=== PATIENT | female | born 1975 | race African-American/Black ===

== ENCOUNTER 2017-09-13 08:30 | Inpatient (IN) | payer OTHER ==
[~2017-09-13] VITALS: Ht 170.2 cm; Wt 88.5 kg
[2017-09-27] MEDS ORDERED: VANCOMYCIN 1 GM/200 ML PREMIX IV SCH (10:45)
[2017-09-27] MEDS ORDERED: ceFAZolin 2 GM PREMIX 50 ML IV SCH (10:45)
[2017-09-27] MEDS ORDERED: LACTATED RINGER'S 1000 ML IV PRN (10:45)
[2017-09-27] MEDS ORDERED: METOPROLOL TARTRATE 25 MG TAB PO PRN (10:45)
[2017-09-27] MEDS ORDERED: POVIDONE IODINE 5% (ANTISEPSIS KIT) 4 APPLICATIONS EACH NARE PRN (10:45)
[2017-09-27] MEDS ORDERED: SODIUM CHLORID 0.9% 500 ML IV PRN (10:45)
[2017-09-27] MEDS ORDERED: INSULIN HUMAN REGULAR 1,000 UNITS/10 ML VIAL SQ PRN (10:45)
[2017-09-27] MEDS ORDERED: CHLORHEXIDINE GLUCONATE 4% SOLN 120 ML BTL TOPICAL SCH (10:45)
[2017-09-27] MEDS ORDERED: CHLORHEXIDINE GLUCONATE 2 % 1 PACK (2 CLOTHS) TOPICAL PRN (10:45)
[2017-09-27] MEDS ORDERED: KETAMINE HCL 500 MG/10 ML VIAL ONE (11:05)
[2017-09-27] MEDS ORDERED: PROPOFOL 500 MG/50 ML INJ 150 ML ONE (11:06)
[2017-09-27] MEDS ORDERED: BUPIVACAINE/EPINEPHRINE 0.5% PF 30 ML VIAL ONE (11:10)
[2017-09-27] MEDS ORDERED: GENTAMICIN SULFATE 80 MG/2 ML VIAL ONE (11:14)
[2017-09-27] MEDS ORDERED: ACETAMINOPHEN 1000 MG/100 ML 100 ML IV ONE (14:36)
[2017-09-27] MEDS ORDERED: MORPHINE SULFATE 4 MG/ML INJ IV PUSH PRN (15:45)
[2017-09-27] MEDS ORDERED: NALOXONE HCL 0.4 MG/ML AMP IV PUSH PRN (15:45)
[2017-09-27] MEDS ORDERED: Post-op Orders (for Pharmacy) XX ONE (15:45)
[2017-09-27] MEDS ORDERED: ALUMINUM/MAGNESIUM/SIMETH 30 ML CUP PO PRN (15:45)
[2017-09-27] MEDS ORDERED: PROMETHAZINE INJ 25 MG/ML VIAL IM PRN (15:45)
[2017-09-27] MEDS ORDERED: ACETAMINOPHEN/HYDROcodone 325 MG/7.5 MG TAB PO PRN (15:45)
[2017-09-27] MEDS ORDERED: ONDANSETRON HCL 4 MG/2 ML VIAL IV PUSH PRN (15:45)
--- NOTE | 2017-09-27 15:57 | RADRPT ---
EXAM DATE/TIME: 09/27/2017 11:59 [facility] COMPARISON: No previous studies available for comparison. INDICATIONS : Fusion C3,C4 and C4,and C5,C6 with screw and plate. MEDICAL HISTORY : None. SURGICAL HISTORY : None. ENCOUNTER: Initial ACUITY: 1 day PAIN SCORE: Non-responsive. LOCATION: Cervical spine. FINDINGS: Two projection examination was performed. Intraoperative films demonstrate anterior cervical fusion f rom C3-C6 CONCLUSION: Intraoperative films demonstrate excellent alignment status post fusion from C3-C6. Edmund Hargrove MD on September 27, 2017 at 15:53 Board Certified Radiologist. This report was verified electronically.
--- NOTE | 2017-09-27 16:07 | PD.OP ---
cc: Evan Adames MD; Richard Adames MD Operative Report Date of Surgery: Sep 27, 2017 Preoperative Diagnosis: Herniated nucleus pulposus C3-4 central. Herniated nucleus pulposus C4-5 central, right. Osteophyte disc complex C5-6 right greater than left. Right greater than left cervical radiculopathy Postoperative Diagnosis: Same Procedure: Anterior cervical discectomy and decompression with bilateral foraminotomy and resection of herniated nucleus pulposus, C3-4. Anterior cervical discectomy and decompression with bilateral foraminotomies and resection herniated nucleus pulposus C4-5. Anterior cervical discectomy and decompression with bilateral foraminotomies and resection osteophyte disc complex, C5-6 Anesthesia: General Surgeon: Richard Adames Director Of Premium Seat Sales(s): MAGDA Chester Operation and Findings: EBL: 300 cc INDICATIONS: This patient is a 41-year-old female with a work-related injury to her cervical spine. She has significant radiating arm pain. She has had over one year of conservative care. She now presents for surgical treatment. NOTE: Chani Lee PA-C was present for the entire surgical procedure as my information technology assistant. In my medical opinion her skill and care was necessary for proper management of this patient PROCEDURE: The patient was brought to the operating room and anesthetized in the supine position. This patient was positioned supine on the radiolucent table. All pressure points were protected in the anterior cervical spine and iliac crest was scrubbed with alcohol followed by Hibiclens followed by ChloraPrep. A timeout was done and antibiotics were given within 1 hour time window. Lateral radiographic images were used identifying the proper level. A right anterior incision was made in line with skin creases. The platysma was opened in line with the incision. Deep dissection continued in the interval between the carotid sheath and the esophagus. The longus-coli muscles were lifted on both sides and retractors were positioned allowing good exposure. Lateral radiographic images were used to identify the proper level. [place] style interosseous pins were placed at C3 and C4 allowing exposure to that level. The microscope was rolled into the field. A total discectomy was accomplished and posterior osteophytes were removed. The posterior longitudinal ligament and annulus was taken down. There was a significant disc herniation centrally bilateral foraminotomies were accomplished. The endplates were squared up anticipating later bone grafting. A blunt probe could be placed out each foramen without evidence of nerve root compromise. The C3 pin was placed down to C5. An anterior exposure was accomplished. We performed a total discectomy with excision of the posterior annulus and posterior longitudinal ligament. There was a significant disc herniation centrally into the right extending to the foramen bilateral foraminotomies were accomplished. Osteophytes were removed. The endplates were squared up anticipating later bone grafting. A blunt probe could be placed out each foramen without evidence of nerve root compromise. The C4 pin was placed down to C6. An anterior exposure was accomplished. We performed a total discectomy with excision of the posterior annulus and posterior longitudinal ligament. Bilateral foraminotomies were accomplished. Osteophytes were removed. The endplates were squared up anticipating later bone grafting. A blunt probe could be placed out each foramen without evidence of nerve root compromise. The left iliac crest was approached. A small stab incision was made allowing percutaneous access to the anterior iliac crest. Multiple cores of cancellous bone were harvested and taken to the back table to be used for later bone grafting. The wound was irrigated anesthetized and closed with 4-0 Vicryl followed by Dermabond. The case was turned over to Dr. Evan Adames for fusion and instrumentation per his dictation. FINDINGS: There was evidence of a large central disc herniation at C3-4. There is a large central and right-sided disc herniation at C4-5. There was moderate bilateral foraminal stenosis, worse on the right at the C5-6 level. There was no complication. There was significant epidural bleeding to the right at the C4 -5 level which was addressed and stopped with Surgi-Tony. At the end of the procedure there was no significant bleeding at any level NOTE: This surgery was performed in 2 parts. The first part was the neurosurgical decompression performed under the variable power stereo microscope by the undersigned in addition to the bone graft. The second portion of the surgery will be performed by the orthopedic spine component by co -surgeon, Dr. Evan Adames for the anterior fusion with interbody cage and anterior plate. The skill of 2 surgeons was necessary to perform distinct separate procedural services as dictated above and dictated in the following operative note by Dr. Evan Adames. Richard Adames MD Sep 27, 2017 16:07
[2017-09-27] MEDS ORDERED: DO NOT ADM ANY ANTICOAGULANT DRUGS PRN (16:15)
[2017-09-27] MEDS ORDERED: MIDAZOLAM HCL 2 MG/2 ML VIAL ONE (16:19)
--- NOTE | 2017-09-27 16:24 | MP ---
cc: Evan Adames MD DATE OF OPERATION: DATE OF OPERATION: 09/27/2017. PREOPERATIVE DIAGNOSES: 1. C3-C4 central herniated nucleus pulposus. 2. C4-C5 central right-sided herniated nucleus pulposus, moderate spinal cord compression. 3. C5-C6 osteophyte disk complex, protruding disk. 4. Bilateral cervical radiculitis with bilateral upper extremity weakness. POSTOPERATIVE DIAGNOSES: 1. C3-C4 central herniated nucleus pulposus. 2. C4-C5 central right-sided herniated nucleus pulposus, moderate spinal cord compression. 3. C5-C6 osteophyte disk complex, protruding disk. 4. Bilateral cervical radiculitis with bilateral upper extremity weakness. PROCEDURE PERFORMED: C3-C4, C4-C5, C5-C6, anterior interbody fusion; C3-C4, C4-C5, C5-C6 SpineNet ACC anterior cervical cage; C3-C6 Spine[employer] Rauscher anterior spinal instrumentation. SURGEON: Evan Magana MD MEDICAL GENETICIST: Magda David PA-C ESTIMATED BLOOD LOSS: 350 mL for the entire case. ANESTHESIA: General. DRAIN: One. COMPLICATIONS: None. CONDITION: Stable. DESCRIPTION OF PROCEDURE: Dr. Richard Adames and myself were co-surgeons. Dr. Richard Adames performed the neuro decompressive portion of the procedure. He performed a C3-C4, C4-C5, C5-C6 anterior cervical diskectomy, anterior decompression, foraminotomies using an operative microscope and also performed left anterior iliac crest autogenous bone grafting. I was not present for his portion of the procedure. I performed the above-mentioned surgical procedure. My speech language pathology assistant Magda David PA-C was present for my portion of the surgical case. She was medically necessary for the entire case because of the complexity case and to facilitate the performance of the procedure. The SALES PERSON at the back table was not of the skill set in this case to manipulate the instruments, e.g. multiple different soft tissue retractors, trial implants and permanent implants, including bone grafting, spinal instrumentation and screws. The endplates at C5-C6 were prepared for fusion. The hyaline cartilage endplates were removed using angled curettes and burs. A 610 x 12 ACC cage were placed into the interspace. Anterior iliac crest bone graft was placed under fluoroscopic guidance for interbody fusion. The endplates at C4-C5 were prepared for fusion. The hyaline cartilage endplates were removed using angled curettes and burs. A 610 x 12 ACC cage placed in interspace. Anterior iliac crest bone grafting was used under fluoroscopic guidance for interbody fusion. The endplates at C3-C4 were prepared for fusion. The hyaline cartilage endplates were removed using angled curettes and burs. A 510 x 12 ACC cage placed in interspace. Anterior iliac crest bone graft was used under fluoroscopic guidance for interbody fusion. Anterior osteophytes were removed using multiple types of rongeurs and sommer. A 60 mm plate was then used for anterior spinal instrumentation. A single transfixion screw was used. Temporary screw was used. Under fluoroscopic guidance, AP and lateral plane, it appeared to be in satisfactory positioning. Two screws were used in the vertebral body of C3, C4, C5, and C6. Each of the screws were 12 mm screws in length, 4.0 mm in diameter fixed angle screws. Each of the screws were drilled. Screws were inserted. Each screw head was appropriately locked in the plate. The temporary transfixion screw was removed and then the final screw was inserted and locked to the plate. Intraoperative fluoroscopy AP and lateral plane confirmed satisfactory position of the bone graft at C3-C4, C4-C5, C5-C6 after placing ACC cages at C3-C4, C4-C5, C5-C6, and satisfactory position of anterior spinal instrumentation from C3-C6. The wound was irrigated with copious amounts of sterile saline antibiotic solution. The wound was closed over a 10-[place] drain. Wound was closed in multiple layers using 3-0 Vicryl suture. Skin was approximated with a running subcuticular 4-0 Vicryl. Sterile dressings were applied. The patient was placed in a [place] cervical orthosis. The patient tolerated the procedure well, arrived in the recovery room in stable and satisfactory condition. MD LESVIA Eaton/DUY , 03:42 PM , 04:24 PM
[2017-09-27] MEDS: LACTATED RINGER'S 1000 ML INJ 1,000 ML IV SCH (16:26)
[2017-09-27] MEDS ORDERED: *morphine SULFATE 4 MG/ML PERIprocedure ONLY ONE ×3 (17:02→17:49)
[2017-09-27] MEDS: ACETAMINOPHEN/HYDROcodone 325 MG/7.5 MG TAB PO PRN (19:52)
[2017-09-27 20:05] VITALS: BP 164/89; PULSE 61; RESP 18; TEMP 98.3; O2SAT 100
[2017-09-27 20:57] VITALS: BP 164/86; PULSE 64
[2017-09-27] MEDS ORDERED: ZOLPIDEM TARTRATE 5 MG TAB PO PRN (21:00)
[2017-09-27 23:47] VITALS: BP 145/76; PULSE 97; RESP 17; TEMP 99.4; O2SAT 100
[2017-09-28] VITALS (8 sets, daily range): BP systolic 121–142; BP diastolic 59–74; PULSE 84–106; RESP 16–18; TEMP 98–99.5; O2SAT 96–100
[2017-09-28 03:06] LABS: AUTOMATED NEUTROPHIL # 9.9 TH/MM3 (1.8-7.7); BASOPHIL % 0.3 % (0.0-2.0); HEMATOCRIT 26.1 % (35.0-46.0); HEMOGLOBIN 8.5 GM/DL (11.6-15.3); LYMPH % 8.1 % (9.0-44.0); LYMPHOCYTE # 0.9 TH/MM3 (1.0-4.8); MEAN CELL VOLUME 81.9 FL (80.0-100.0); MEAN CORPUSCULAR HEMOGLOBIN 26.8 PG (27.0-34.0); MEAN CORPUSCULAR HGB CONC 32.7 % (32.0-36.0); MEAN PLATELET VOLUME 8.7 FL (7.0-11.0); MONO % 4.2 % (0.0-8.0); MONOCYTE # 0.5 TH/MM3 (0-0.9); NEUT % 87.4 % (16.0-70.0); PLATELET COUNT 252 TH/MM3 (150-450); RED BLOOD COUNT 3.19 MIL/MM3 (4.00-5.30); WHITE BLOOD COUNT 11.3 TH/MM3 (4.0-11.0)
[2017-09-28 03:26] LABS: CALCIUM 8.1 MG/DL (8.5-10.1); CREATININE 0.84 MG/DL (0.50-1.00)
[2017-09-28] MEDS: LACTATED RINGER'S 1000 ML INJ 1,000 ML IV SCH ×2 (03:43→16:43)
[2017-09-28] MEDS: ACETAMINOPHEN/HYDROcodone 325 MG/7.5 MG TAB PO PRN ×4 (03:43→21:30)
[2017-09-28] MEDS ORDERED: IOHEXOL 350 MG/ML 10 ML VIAL (for RAD DIAG) IVCONTRAST ONE (04:48)
--- NOTE | 2017-09-28 05:05 | RADRPT ---
EXAM DATE/TIME: 09/28/2017 04:36 [facility] COMPARISON: No previous studies available for comparison. INDICATIONS : Chest pain, elevated d-dimer. IV CONTRAST: 75 cc Omnipaque 350 (iohexol) IV RADIATION DOSE: 10.06 CTDIvol (mGy) MEDICAL HISTORY : None SURGICAL HISTORY : Fusion, cervical. ENCOUNTER: Initial ACUITY: 1 day PAIN SCALE: 10/10 LOCATION: chest TECHNIQUE: Volumetric scanning of the chest was performed using a pulmonary embolism protocol MIP images were re constructed. Using automated exposure control and adjustment of the mA and/or kV according to patien t size, radiation dose was kept as low as reasonably achievable to obtain optimal diagnostic quality images. DICOM format image data is available electronically for review and comparison. Follow-up recommendations for detected pulmonary nodules are based at a minimum on nodule size and pa tient risk factors according to Fleischner Society Guidelines. FINDINGS: PULMONARY ARTERIES: No filling defects are seen in the pulmonary arteries through the segmental level. LUNGS: Subsegmental area of consolidation in the posterior segment of the right upper lobe and patchy areas of atelectasis with consolidation in the posterior lower lungs. PLEURAE: There is no pleural thickening or pleural effusion. MEDIASTINUM: There is good visualization of the great vessels of the middle mediastinum. No evidence of mediastin al or hilar adenopathy/mass. CONCLUSION: 1. The study is negative for pulmonary embolism. 2. Subsegmental areas of consolidation in the lower lungs bilaterally and in the posterior segment ri ght upper lobe. Arley Lemons MD on September 28, 2017 at 4:58 Board Certified Radiologist. This report was verified electronically.
[2017-09-28] MEDS ORDERED: HYDR-3288 PO (06:54)
--- NOTE | 2017-09-28 07:01 | PD.ORT.PN ---
Subjective Subjective Remarks pt complains of chest pain and left leg pain soreness in cervical spine, arm pain improved Objective Vitals Vital Signs Date Time Temp Pulse Resp B/P (MAP) Pulse Ox O2 Delivery O2 Flow Rate FiO2 09/28/17 03:40 99.4 106 17 142/74 (96) 97 09/27/17 23:47 99.4 97 17 145/76 (99) 100 09/27/17 20:57 64 164/86 (112) 09/27/17 20:05 98.3 61 18 164/89 (114) 100 09/27/17 18:30 74 18 162/81 (108) 100 Nasal Cannula 3 09/27/17 18:00 78 15 165/90 (115) 100 Nasal Cannula 3 09/27/17 17:30 72 14 163/97 (119) 100 Nasal Cannula 3 09/27/17 17:00 76 14 167/96 (119) 100 Nasal Cannula 3 09/27/17 16:45 76 25 148/89 (108) 100 Nasal Cannula 3 09/27/17 16:30 71 20 150/80 (103) 100 Nasal Cannula 3 09/27/17 16:14 97.5 74 13 135/82 (99) 100 Nasal Cannula 3 09/27/17 10:33 97.5 74 20 143/91 (108) 99 I/O 09/27/17 09/27/17 09/27/17 09/28/17 09/28/17 09/28/17 07:00 15:00 23:00 07:00 15:00 23:00 Intake Total 900 ml 360 ml Output Total 1215 ml 910 ml Balance -315 ml -550 ml Intake Oral 360 ml Other 900 ml Output Urine Total 825 ml 900 ml Drainage Total 40 ml 10 ml Estimated Blood Loss 350 ml # Bowel Movements 0 Result Diagram: 09/28/17 0226 09/28/17 0226 Imaging Last [address] Angiography 09/28/17 0000 Signed Impressions: Service Date/Time: Thursday, September 28, 2017 04:36 - CONCLUSION: 1. The study is negative for pulmonary embolism. 2. Subsegmental areas of consolidation in the lower lungs bilaterally and in the posterior segment right upper lobe. Arley Lemons MD Objective Remarks seen and examined by Dr. Evan Adames Wal[place] collar in place dressing dry and intact motor is +5/5 to UE Assessment & Plan Assessment and Plan POD # 1 s/p C3-6 ACDF Walpole collar x 2 months [place] rx in chart consult cardiology today for further evaluation of chest pain if stable, may be discharged home this afternoon otherwise, anticipate discharge Sunday home Magda David Sep 28, 2017 07:01
[2017-09-28] MEDS: MULTIVITAMINS/MINERALS THERAPEUTIC TAB PO SCH ×2 (09:53→21:30)
--- NOTE | 2017-09-28 10:35 | PD.CONS ---
HPI Service [facility] Consult Requested By medical comanagement/chest pain Primary Care Physician No Primary Care Physician Diagnoses: History of Present Illness This is a 41-year-old female who sustained a work-related injury to her cervical spine after a fall at work. She failed conservative treatment, she was admitted for discectomy. We are consulted for management of chronic medical conditions and chest pain. My team ordered troponin 2 and EKG last night and CTA. CTA is unremarkable, negative for PE. Troponin negative 2. EKG is unremarkable. Per patient, she has been having this chest pain for a while for the last 3-4 months. Chest pain is chronic but was worse last night, associated with mild shortness of breath, radiating to the left jaw and left arm , located in the left side of the chest, described as sharp, sometimes pressure- like. Presently, no nausea or vomiting. She does not have any complaints other than cervical pain. Review of Systems ROS Limitations: Other (All other pertinent systems were reviewed and are negative.) Past Family Social History Allergies: Coded Allergies: No Known Allergies (Unverified , 09/25/17) Past Medical History pre-hypertension Past Surgical History discectomy Reported Medications [place] (Hydrocodone-Acetaminophen) 7.5-325 mg Tab 1-2 Tab PO Q6H PRN Family History No history of diabetes mellitus or heart problems Social History Non-smoker, does not drink alcohol. Physical Exam Vital Signs Vital Signs Date Time Temp Pulse Resp B/P (MAP) Pulse Ox O2 Delivery O2 Flow Rate FiO2 09/28/17 08:25 98 Nasal Cannula 1.00 09/28/17 08:00 98.6 90 16 137/73 (94) 99 09/28/17 03:40 99.4 106 17 142/74 (96) 97 09/27/17 23:47 99.4 97 17 145/76 (99) 100 09/27/17 20:57 64 164/86 (112) 09/27/17 20:05 98.3 61 18 164/89 (114) 100 09/27/17 18:30 74 18 162/81 (108) 100 Nasal Cannula 3 09/27/17 18:00 78 15 165/90 (115) 100 Nasal Cannula 3 09/27/17 17:30 72 14 163/97 (119) 100 Nasal Cannula 3 09/27/17 17:00 76 14 167/96 (119) 100 Nasal Cannula 3 09/27/17 16:45 76 25 148/89 (108) 100 Nasal Cannula 3 09/27/17 16:30 71 20 150/80 (103) 100 Nasal Cannula 3 09/27/17 16:14 97.5 74 13 135/82 (99) 100 Nasal Cannula 3 09/27/17 10:33 97.5 74 20 143/91 (108) 99 Physical Exam Not in distress PERRL, pink conjunctivae, full EOMs, no cranial nerve deficits Schuyler collar in place Regular rate and rhythm, no chest tenderness on palpation Clear breath sounds Abdomen soft nontender SCDs in place, no edema. Alert awake and alert oriented 3, no focal deficits. Good handgrip bilaterally. Patient appears very weak, good plantarflexion on the right, left is diminished but also poor effort. Laboratory Laboratory Tests Test 09/27/17 23:23 09/28/17 02:26 D-Dimer Quantitative (PE/DVT) 2.44 Troponin I LESS THAN 0.02 LESS THAN 0.02 White Blood Count 11.3 Red Blood Count 3.19 Hemoglobin 8.5 Hematocrit 26.1 Mean Corpuscular Volume 81.9 Mean Corpuscular Hemoglobin 26.8 Mean Corpuscular Hemoglobin Concent 32.7 Red Cell Distribution Width 13.0 Platelet Count 252 Mean Platelet Volume 8.7 Neutrophils (%) (Auto) 87.4 Lymphocytes (%) (Auto) 8.1 Monocytes (%) (Auto) 4.2 Eosinophils (%) (Auto) 0.0 Basophils (%) (Auto) 0.3 Neutrophils # (Auto) 9.9 Lymphocytes # (Auto) 0.9 Monocytes # (Auto) 0.5 Eosinophils # (Auto) 0.0 Basophils # (Auto) 0.0 CBC Comment DIFF FINAL Differential Comment Blood Urea Nitrogen 8 Creatinine 0.84 Random Glucose 180 Calcium Level 8.1 Sodium Level 137 Potassium Level 4.3 Chloride Level 101 Carbon Dioxide Level 25.0 Anion Gap 11 Estimat Glomerular Filtration Rate 90 Result Diagram: 09/28/1722509/28/17225 Assessment and Plan Assessment and Plan This is a 41-year-old female admitted for discectomy for cervical disc herniation after a work-related injury Cervical disc herniation-Schuyler collar in place, continue pain control, management per primary. Chest pain-could be musculoskeletal or related to cervical pathology. CT negative for PE, d-dimer elevated, troponin negative 2, EKG showed sinus rhythm. Cardiology was consulted, labs reviewed, grossly unremarkable. Discussed with cardiology Dr. Lan, for stress test tomorrow. Mild anemia-recheck hemoglobin tomorrow. DVT prophylaxis: Per attending. Marni Good MD Sep 28, 2017 10:35
--- NOTE | 2017-09-28 12:36 | MB ---
cc: RikyBethanyginna Horne DO DATE: 09/28/2017 REASON FOR CONSULTATION: Chest pain. HISTORY OF PRESENT ILLNESS: Nina Goodman is a pleasant 41-year-old female who sustained a work-related injury to her cervical spine after a fall at work. She failed conservative treatment and was admitted and underwent a multilevel discectomy with decompression of her cervical spine with fusion . Afterwards, apparently she was having some chest pain. A D-dimer was checked and elevated and so she underwent a CTA which showed no pulmonary embolus. EKGs were checked as well as troponins with troponins being negative and EKG showing no acute ST-T wave changes. In seeing her, she feels weak all over with pain everywhere. She states that the pain is difficult to describe in her chest, but it feels like the blood is trying to force itself through the heart. She states that it is over the left side and does not radiate anywhere. She has never had an episode like this before. She feels somewhat short of breath with the episode. Pain has kind of come and gone throughout the day. It does seem to react a little bit to the pain medication, but does not go away totally with pain medication. She was asked to see a corset fitter before the surgery apparently and had seen one, but she had seen a corset fitter in [place], she is unsure of the name, but it does not seem like she underwent a workup preoperatively before surgery. She was apparently scheduled for a stress test in June, but they felt like her problems were due to stress before surgery and so apparently she did not have the stress test. She is not a very good historian on what has happened over the past few months to get her to this point. PAST MEDICAL HISTORY: Hypertension. PAST SURGICAL HISTORY: Discectomy with anterior fusion. ALLERGIES: NO KNOWN DRUG ALLERGIES. MEDICATIONS: [place] 7.5/325 every 6 hours as needed for pain. FAMILY HISTORY: Denies premature coronary artery disease or sudden cardiac within the family. SOCIAL HISTORY: Denies tobacco, alcohol or drug abuse. REVIEW OF SYSTEMS: Fourteen systems are reviewed including osteopathic pertinent positives and negatives above, otherwise negative. PHYSICAL EXAMINATION: VITAL SIGNS: Temperature 98.6, heart rate 90, blood pressure 137/73, respirations 16, pulse oximetry 99% on 1 liter. GENERAL: The patient appears in no acute distress, but overall weak. Alert, awake and oriented x3. HEENT: Extraocular muscles intact. Mucous membranes moist. Mineral collar in place. HEART: Regular rate and rhythm. Positive first and second heart sounds with no known murmurs, gallops or rubs. LUNGS: Clear to auscultation bilaterally. No wheezes, rales or rhonchi. ABDOMEN: Soft, nontender, nondistended. No organomegaly noted. EXTREMITIES: No clubbing, cyanosis or edema. Femoral and distal pulses intact bilaterally. SKIN: Warm, dry and intact. OSTEOPATHIC: Mild kyphoscoliosis. No lordosis. LABORATORY DATA: Hemoglobin 8.5, hematocrit 26.1, platelets 252. Troponin negative x2. Potassium 4.3, BUN 8, creatinine 0.84. Troponin negative x2. Electrocardiogram (09/28/2017 at 09:31) Normal sinus rhythm, low QRS voltage in precordial leads, poor R-wave progression. IMPRESSIONS: 1. Cervical disk herniation, status post discectomy with anterior fusion. 2. Atypical chest pain, possible musculoskeletal. 3. Anemia. 4. History of hypertension. RECOMMENDATIONS: 1. Ms. Rhodes underwent discectomy with anterior fusion and afterwards had some mild chest pain. She continues to have some of this chest pain and overall her troponins have been negative and her EKG shows no ischemic changes. 2. I feel that she needs a stress test at some time to rule out significant disease, although my concern is that even if stress test was positive. I do not know if she would be an invasive candidate at this time with recent orthopedic/neurosurgery. This will have to be further discussed with Dr. Evan Adames and Dr. Richard Adames. 3. If not a candidate for high dose of heparin, glycoprotein IIb, IIIa inhibitors and dual antiplatelet therapy, would consider further medical management. At that time, she could then followup with Cardiology in [place] for further consideration of stress testing. 4. If she is able to be an invasive candidate, then we would consider stress testing tomorrow morning. 5. Further recommendations will be made after discussing with Dr. Evan Adames and Dr. Richard Adames. Thank you for allowing me to see Nina Rhodes. If there are any questions, please do not hesitate to call. DO GALEN Romeo/TYLER , 12:00 PM , 12:35 PM
--- NOTE | 2017-09-28 13:39 | EKG ---
Date Performed: 09/27/2017 Time Performed: 22:23:04 PTAGE: 41 years EKG: Sinus rhythm MODERATE VOLTAGE CRITERIA FOR LVH, CONSIDER NORMAL VARIANT POSSIBLE ANTERIOR MYOCARDIAL INFARCTION , PROBABLY OLD BORDERLINE ECG NO PREVIOUS TRACING DOCTOR: Eduardo Sheikh Interpretating Date/Time 09/28/2017 13:36:21
--- NOTE | 2017-09-28 13:45 | EKG ---
Date Performed: 09/28/2017 Time Performed: 09:31:17 PTAGE: 41 years EKG: Sinus rhythm LOW QRS VOLTAGE IN PRECORDIAL LEADS POSSIBLE ANTERIOR MYOCARDIAL INFARCTION , PROBABLY OLD BORDERLIN E ECG PREVIOUS TRACING : 09/27/2017 22.23 Since the previous tracing, no significant change noted DOCTOR: Eduardo Sheikh Interpretating Date/Time 09/28/2017 13:43:16
--- NOTE | 2017-09-28 18:58 | PD.CARD.PN ---
Assessment and Plan Assessment and Plan Discussed with Dr. Richard Adames over the phone. Overall, with her recent surgery especially the neurosurgical portion, would not place on high dose of heparin or dual anti-platelet medications. For now, troponins have been negative and EKG with no ischemic changes. Will plan for continuation of medical management. If stable in the morning she can be discharged home. She can follow up with the greenskeeper head she saw in [place] for further consideration of stress testing in the near future. Discussed with the patient and she understands. Milad Lan DO Sep 28, 2017 18:58
[2017-09-29 03:22] VITALS: BP 148/78; PULSE 104; RESP 18; TEMP 99.9; O2SAT 97
[2017-09-29] MEDS: ACETAMINOPHEN/HYDROcodone 325 MG/7.5 MG TAB PO PRN ×2 (03:26→09:09)
[2017-09-29] MEDS: LACTATED RINGER'S 1000 ML INJ 1,000 ML IV SCH (05:13)
[2017-09-29 06:28] VITALS: BP 134/70; PULSE 94; RESP 18; TEMP 98.9; O2SAT 99
--- NOTE | 2017-09-29 07:12 | PD.ORT.PN ---
Subjective Subjective Remarks Pain is controlled and is improving Objective Vitals Vital Signs Date Time Temp Pulse Resp B/P (MAP) Pulse Ox O2 Delivery O2 Flow Rate FiO2 09/29/17 06:28 98.9 94 18 134/70 (91) 99 09/29/17 03:22 99.9 104 18 148/78 (101) 97 09/28/17 23:03 98.4 102 18 121/59 (79) 96 09/28/17 20:33 100 21 09/28/17 19:50 99.5 94 18 124/63 (83) 97 09/28/17 16:00 98.0 84 16 121/63 (82) 96 09/28/17 12:00 98.9 91 16 133/71 (91) 97 09/28/17 08:25 98 Nasal Cannula 1.00 09/28/17 08:00 98.6 90 16 137/73 (94) 99 I/O 09/28/17 09/28/17 09/28/17 09/29/17 09/29/17 09/29/17 07:00 15:00 23:00 07:00 15:00 23:00 Intake Total 360 ml 600 ml 480 ml Output Total 910 ml 3600 ml Balance -550 ml -3000 ml 480 ml Intake Oral 360 ml 600 ml 480 ml Output Urine Total 900 ml 3600 ml Drainage Total 10 ml # Voids 2 # Bowel Movements 0 0 Result Diagram: 09/28/17 0226 09/28/17 0226 Imaging Last [address] Angiography 09/28/17 0000 Signed Impressions: Service Date/Time: Thursday, September 28, 2017 04:36 - CONCLUSION: 1. The study is negative for pulmonary embolism. 2. Subsegmental areas of consolidation in the lower lungs bilaterally and in the posterior segment right upper lobe. 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 If cleared by physical therapy discharged home today Shashank Peacock Jr. Sep 29, 2017 07:12
[2017-09-29] MEDS: MULTIVITAMINS/MINERALS THERAPEUTIC TAB PO SCH (09:09)
[2017-09-29] MEDS ORDERED: WALKER WHEELS/F1 MIS (11:19)
[2017-09-29 11:52] VITALS: BP 135/68; PULSE 91; RESP 18; TEMP 98.5; O2SAT 94
--- NOTE | 2017-09-29 13:19 | PD.CARD.PN ---
Subjective Subjective Remarks No events overnight Up to the chair Feels better overall Objective Vital Signs / I&O Vital Signs Date Time Temp Pulse Resp B/P (MAP) Pulse Ox O2 Delivery O2 Flow Rate FiO2 09/29/17 11:52 98.5 91 18 135/68 (90) 94 09/29/17 09:34 21 09/29/17 06:28 98.9 94 18 134/70 (91) 99 09/29/17 03:22 99.9 104 18 148/78 (101) 97 09/28/17 23:03 98.4 102 18 121/59 (79) 96 09/28/17 20:33 100 21 09/28/17 19:50 99.5 94 18 124/63 (83) 97 09/28/17 16:00 98.0 84 16 121/63 (82) 96 I/O 09/28/17 09/28/17 09/28/17 09/29/17 09/29/17 09/29/17 07:00 15:00 23:00 07:00 15:00 23:00 Intake Total 360 ml 600 ml 480 ml Output Total 910 ml 3600 ml Balance -550 ml -3000 ml 480 ml Intake Oral 360 ml 600 ml 480 ml Output Urine Total 900 ml 3600 ml Drainage Total 10 ml # Voids 2 # Bowel Movements 0 0 Physical Exam GENERAL: NAD, AAOx3 SKIN: Warm and dry. HEAD: Atraumatic. Normocephalic. EYES: Pupils equal and round. No scleral icterus. No injection or drainage. ENT: No nasal bleeding or discharge. Mucous membranes pink and moist. NECK: [place] collar CARDIOVASCULAR: Regular rate and rhythm. RESPIRATORY: No accessory muscle use. Clear to auscultation. Breath sounds equal bilaterally. GASTROINTESTINAL: Abdomen soft, non-tender, nondistended. Hepatic and splenic margins not palpable. MUSCULOSKELETAL: Extremities without clubbing, cyanosis, or edema. No obvious deformities. NEUROLOGICAL: Awake and alert. No obvious cranial nerve deficits. Motor grossly within normal limits. Five out of 5 muscle strength in the arms and legs. Normal speech. PSYCHIATRIC: Appropriate mood and affect; insight and judgment normal. Assessment and Plan Problem List: (1) Atypical chest pain ICD Codes: R07.89 - Other chest pain (2) S/P spinal fusion ICD Codes: Z98.1 - Arthrodesis status Assessment and Plan 1) Spinal fusion Per Orthopedics 2) Atypical chest pain Does not appear to be cardiac in nature, EKG with no changes and Troponins negative Due to recent Orthopedic/neurosurgery, would continue with medical management for now Not an invasive candidate as would not be safe to place on high dose of heparin, GP 2B/3A, or DAPT Place on ASA 81mg as soon as safe 3) Plan for discharge today 4) Will follow up with her metal sprayer protective coating in [place] for further consideration of stress testing once stable for anti-platelet/anti-coagulation Discussed with patient, understands and agrees with plan If further chest pain will go to the ER immediately Milda Lan DO Sep 29, 2017 13:19
== END 2017-09-29 12:34 | disposition home or self-care (01) | DRG 472 ==
LOC: HSDI 09-27 09:59 → N06A 09-27 19:02
PROVIDERS: ADMIT Orthopaedic Surgery Orthopaedic Surgery of the Spine; ATTEND Orthopaedic Surgery Orthopaedic Surgery of the Spine
PROC: 0RT30ZZ Resection of Cervical Vertebral Disc, Open Approach (ICD-10-PCS; 2017-09-27)
PROC: 0QB33ZZ Excision of Left Pelvic Bone, Percutaneous Approach (ICD-10-PCS; 2017-09-27)
PROC: 0RG20A0 Fusion of 2 or more Cervical Vertebral Joints with Interbody Fusion Device, Anterior Approach, Anterior Column, Open Approach (ICD-10-PCS; principal; 2017-09-27 11:29)
DX: M50.11 Cervical disc disorder with radiculopathy, high cervical region (principal); G95.20 Unspecified cord compression; M48.02 Spinal stenosis, cervical region; M25.78 Osteophyte, vertebrae; R07.89 Other chest pain; D64.9 Anemia, unspecified; R06.02 Shortness of breath; W19.XXXA Unspecified fall, initial encounter; Y99.0 Civilian activity done for income or pay
CPT/HCPCS: 71275; 72040; 76000; 80048; 84484; 85025; 85379; 93005; 94150; C1713; J0131; J0690; J1580; J2250; J2270; J2405; J3010; J3370; J7120; Q9967

== ENCOUNTER 2017-09-25 10:45 | Inpatient (IN) | payer OTHER ==
[~2017-09-25] VITALS: Ht 170.2 cm; Wt 85.1 kg
[2017-09-28] MEDS ORDERED: HYDR-3288 PO (06:54)
[2017-09-29] MEDS ORDERED: WALKER WHEELS/F1 MIS (11:19)
[2017-10-09] MEDS ORDERED: VANCOMYCIN 1 GM/200 ML INJ 200 ML IV ONE (09:13)
[2017-10-09] MEDS ORDERED: POVIDONE IODINE 5% (ANTISEPSIS KIT) 4 APPLICATIONS EACH NARE PRN (09:15)
[2017-10-09] MEDS ORDERED: VANCOMYCIN 1000 MG/NS 250 ML (for <70 kg) IV SCH ×2 (09:15)
[2017-10-09] MEDS ORDERED: SODIUM CHLORID 0.9% 500 ML IV PRN (09:15)
[2017-10-09] MEDS ORDERED: CHLORHEXIDINE GLUCONATE 2 % 1 PACK (2 CLOTHS) TOPICAL PRN (09:15)
[2017-10-09] MEDS ORDERED: METOPROLOL TARTRATE 25 MG TAB PO PRN (09:15)
[2017-10-09] MEDS ORDERED: ceFAZolin 2 GM PREMIX 50 ML IV SCH (09:15)
[2017-10-09] MEDS ORDERED: LACTATED RINGER'S 1000 ML IV PRN (09:15)
[2017-10-09] MEDS ORDERED: VANCOMYCIN 1 GM/200 ML PREMIX IV SCH (09:30)
[2017-10-09] MEDS ORDERED: DEXMEDETOMIDINE HCL 200 MCG/2 ML VIAL ONE (09:57)
[2017-10-09] MEDS ORDERED: KETAMINE HCL 500 MG/10 ML VIAL ONE (09:58)
[2017-10-09] MEDS ORDERED: ACETAMINOPHEN 1000 MG/100 ML 100 ML IV ONE (09:58)
[2017-10-09] MEDS ORDERED: LIDOCAINE HCL 2% 20 ML VIAL ONE (09:58)
[2017-10-09] MEDS ORDERED: BUPIVACAINE/EPINEPHRINE 0.5% PF 30 ML VIAL ONE (10:10)
[2017-10-09] MEDS ORDERED: GELFOAM SIZE 100 ONE (10:10)
[2017-10-09] MEDS ORDERED: GENTAMICIN SULFATE 80 MG/2 ML VIAL ONE (10:10)
[2017-10-09] MEDS ORDERED: PROPOFOL 200 MG/20 ML AMP IV ONE (12:00)
[2017-10-09] MEDS ORDERED: LIDOCAINE HCL 1% PF 5 ML SYRINGE OTHER ONE (12:00)
[2017-10-09] MEDS ORDERED: ROCURONIUM INJ 50 MG/5 ML SYRINGE IV PUSH ONE (12:00)
[2017-10-09] MEDS ORDERED: NEOSTIGMINE 5 MG/5 ML SYRINGE IV PUSH ONE (12:00)
[2017-10-09] MEDS ORDERED: DEXAMETHASONE SOD PHOS 4 MG/ML VIAL IV ONE (12:00)
[2017-10-09] MEDS ORDERED: KETOROLAC TROMETHAMINE 30 MG/ML (IVP) VIAL IV PUSH ONE (12:00)
[2017-10-09] MEDS ORDERED: ONDANSETRON HCL 4 MG/2 ML VIAL IV ONE (12:00)
[2017-10-09] MEDS ORDERED: NORMOSOL R INJ 1,000 ML IV ONE (12:00)
[2017-10-09] MEDS ORDERED: GLYCOPYRROLATE 1 MG/5 ML SYRINGE IV PUSH ONE (12:00)
[2017-10-09] MEDS ORDERED: LACTATED RINGER'S 1000 ML INJ 1,000 ML IV ONE (12:00)
[2017-10-09] MEDS ORDERED: ceFAZolin INJ 1,000 MG VIAL IV ONE (12:00)
[2017-10-09] MEDS ORDERED: BISACODYL 10 MG SUPP RECTAL PRN (13:45)
[2017-10-09] MEDS ORDERED: MORPHINE SULFATE 4 MG/ML INJ IV PUSH PRN (13:45)
[2017-10-09] MEDS ORDERED: ONDANSETRON HCL 4 MG/2 ML VIAL IV PUSH PRN (13:45)
[2017-10-09] MEDS ORDERED: ACETAMINOPHEN/HYDROcodone 325 MG/7.5 MG TAB PO PRN (13:45)
[2017-10-09] MEDS ORDERED: Post-op Orders (for Pharmacy) XX ONE (13:45)
--- NOTE | 2017-10-09 13:56 | PD.OP ---
cc: Richard Adames. Operative Report Date of Surgery: October 09, 2017 Preoperative Diagnosis: Status post anterior cervical fusion, C3-4, C4-5, C5-6. Cervical spinal stenosis. Cervical radiculopathy Postoperative Diagnosis: Same Procedure: Posterior cervical fusion C3-4, C4-5, C5-6. Placement of intra-facet cages C3-4, C4-5, C5-6. Posterior spinal instrumentation C3-4, C4-5, C5-6 with trans-facet screws. Left posterior iliac crest bone graft Anesthesia: General Surgeon: Richard Adames Multiple Spindle Router Operator(s): MAGDA Chester Operation and Findings: EBL: 50 cc INDICATION: This patient is a 41-year-old female with cervical stenosis and severe cervical radiculopathy. She is status post ACDF C3-4, C4-5 and C5-6. She now presents for staged posterior cervical fusion with instrumentation across those levels NOTE: Chani Chester PA-C was present for the entire surgical procedure as my actuarial assistant. In my medical opinion her skill and care was necessary for the proper management of this patient. PROCEDURE: The patient was brought to the operating room and anesthetized in the supine position. The patient was rolled to a prone position AP and lateral fluoroscopic images used identifying the proper levels. Visibility was excellent. The posterior cervical spine and an area over the iliac crest was scrubbed with alcohol followed by Hibiclens followed by ChloraPrep and draped sterilely. Antibiotics were given within a routine time window. A timeout was done. An incision was made over the posterior left iliac crest. The outer table of the iliac crest was identified. Multiple cores of cancellous bone were harvested with a percutaneous device. These were taken to the back table and mixed with stem cells and demineralized bone matrix. We first started at the C5-6 level. Skin markings were made. We used an 18- gauge spinal needle on the right side. The proper approach was anticipated. An incision was made on the left side. Skin and subcutaneous tissues were incised. Dissection continued down to the posterior facet joint of that level. An awl was placed down through the facet capsule and into the joint. A decorticating device was utilized decorticating the bone of the facet above and below. A retractor was placed down over the access chisel allowing exposure to the joint and exposure to the articular cartilage. A drilling system was utilized removing cartilage and bone this region followed by a rasp. On the back table demineralized bone matrix was mixed with Nucel stem cells and a autogenous bone graft. A combination of both these were then paced placed into proper cages. The cages were impacted into the proper position and checked again under AP and lateral fluoroscopic images. A transfixation screw was placed into the cage having excellent fixation into the facet joint of the level above. The back side of the cage was filled with additional bone graft which was tamped into position. The retractor was removed. On the right side this was repeated in the likewise fashion. Using the likewise sequence of access to the same level. An access chisel was placed into the joint followed by decortication with excellent visualization. A final retractor was positioned holding this while we were able to drill and use the rasp. The joint was prepared and we created a space for the cage. The cage was filled with bone graft and impacted in proper position. A transfixation screw was fixated at that time and alignment was satisfactory. Additional bone graft placed along the posterior aspect of the cage and the facet joint and was tamped into position. At the C4-5 level, this was repeated in the likewise fashion. A decorticating device was utilized decorticating the bone of the facet above and below. A retractor was placed down over the access chisel allowing exposure to the joint and exposure to the articular cartilage. A drilling system was utilized removing cartilage and bone this region followed by a rasp. On the back table demineralized bone matrix was mixed with Nucel stem cells and a autogenous bone graft. A combination of both these were then paced placed into proper cages. The cages were impacted into the proper position and checked again under AP and lateral fluoroscopic images. A transfixation screw was placed into the cage having excellent fixation into the facet joint of the level above. The back side of the cage was filled with additional bone graft which was tamped into position. The retractor was removed. On the right side this was repeated in the likewise fashion. Using the likewise sequence of access to the same level. An access chisel was placed into the joint followed by decortication with excellent visualization. A final retractor was positioned holding this while we were able to drill and use the rasp. The joint was prepared and we created a space for the cage. The cage was filled with bone graft and impacted in proper position. A transfixation screw was fixated at that time and alignment was satisfactory. Additional bone graft placed along the posterior aspect of the cage and the facet joint and was tamped into position. At the C3-4 level, this was repeated in the likewise fashion. A decorticating device was utilized decorticating the bone of the facet above and below. A retractor was placed down over the access chisel allowing exposure to the joint and exposure to the articular cartilage. A drilling system was utilized removing cartilage and bone this region followed by a rasp. On the back table demineralized bone matrix was mixed with Nucel stem cells and a autogenous bone graft. A combination of both these were then paced placed into proper cages. The cages were impacted into the proper position and checked again under AP and lateral fluoroscopic images. A transfixation screw was placed into the cage having excellent fixation into the facet joint of the level above. The back side of the cage was filled with additional bone graft which was tamped into position. The retractor was removed. On the right side this was repeated in the likewise fashion. Using the likewise sequence of access to the same level. An access chisel was placed into the joint followed by decortication with excellent visualization. A final retractor was positioned holding this while we were able to drill and use the rasp. The joint was prepared and we created a space for the cage. The cage was filled with bone graft and impacted in proper position. A transfixation screw was fixated at that time and alignment was satisfactory. Additional bone graft placed along the posterior aspect of the cage and the facet joint and was tamped into position. Intraoperative x-rays were obtained. The wounds were irrigated copiously. They were then closed with Vicryl suture followed by Steri-Strips. A sterile dressing was applied. The placement was placed into the cervical spine brace, awakened and taken to the recovery room in satisfactory condition. There was no complication that was appreciated. FINDINGS: The final position of all of the cage was felt to be very satisfactory. There was no complication. Fixation was excellent. Richard Adames MD October 09, 2017 13:56
[2017-10-09] MEDS ORDERED: HYDR-3580 PO (14:00)
[2017-10-09] MEDS: LACTATED RINGER'S 1000 ML INJ 1,000 ML IV SCH ×2 (14:00→20:08)
[2017-10-09] MEDS ORDERED: MIDAZOLAM HCL 2 MG/2 ML VIAL ONE (14:09)
[2017-10-09] MEDS ORDERED: MORPHINE SULFATE 4 MG/ML INJ ONE (14:09)
[2017-10-09] MEDS ORDERED: *morphine SULFATE 8 MG/ML PERIprocedure ONLY ONE ×2 (14:17→14:27)
[2017-10-09] MEDS ORDERED: *HYDROmorphone PF 0.5 MG/0.5 ML PERIprocedure ONLY ONE ×2 (15:07→15:48)
--- NOTE | 2017-10-09 16:50 | RADRPT ---
EXAM DATE/TIME: 10/09/2017 13:25 [facility] COMPARISON: No previous studies available for comparison. INDICATIONS : Posterior fusion C3 to C6. MEDICAL HISTORY : None. SURGICAL HISTORY : Fusion, cervical. ENCOUNTER: Initial ACUITY: 1 day PAIN SCORE: Non-responsive. LOCATION: Cervical spine. FINDINGS: 2 projections Limited examination of the cervical spine reveals ventral fusion with hardware from C3- C6. There are facet spacers present bilaterally at the interspace levels. The hardware is well-positi oned and alignment is anatomic. CONCLUSION: Satisfactory operative appearance. Darrian Bartlett MD on October 09, 2017 at 16:35 Board Certified Radiologist. This report was verified electronically.
[2017-10-09 20:00] VITALS: BP 130/73; PULSE 85; RESP 18; TEMP 98.4; O2SAT 99
--- NOTE | 2017-10-09 22:36 | HHI.DCPOC ---
Discharge Care Plan Diagnosis: (1) Cervical spinal stenosis (2) Degenerative disc disease, cervical Your Health Problems Are: Incision/Drains Swelling Goals to Promote Your Health * To prevent worsening of your condition and complications * To maintain your health at the optimal level Directions to Meet Your Goals Take your medications as prescribed Follow your dietary instruction Follow activity as directed Keep your appointments as scheduled Take your immunizations and boosters as scheduled If your symptoms worsen call your PCP, if no PCP go to Urgent Care Center or Emergency Room Smoking is Dangerous to Your Health. Avoid second hand smoke Call the 24-hour hour crisis hotline for domestic abuse at Patito Encarnacion October 09, 2017 22:36
--- NOTE | 2017-10-09 22:38 | HHI.DS ---
Discharge Summary Admission Date October 09, 2017 at 08:10 Discharge Date: October 10, 2017 Admitting Diagnosis see below Diagnosis: (1) Degenerative disc disease, cervical Diagnosis: Principal ICD Codes: M50.30 - Other cervical disc degeneration, unspecified cervical region (2) Cervical spinal stenosis Diagnosis: Principal ICD Codes: M48.02 - Spinal stenosis, cervical region Procedures Posterior cervical fusion C34, C45, C56, DTRAX facet instrumentation, bone graft. 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
[2017-10-09] MEDS ORDERED: MAGNESIUM HYDROXIDE SUSP 30 ML CUP PO PRN (23:45)
[2017-10-10] VITALS: BP 144/72; PULSE 92; RESP 20; TEMP 98.4; O2SAT 100
[2017-10-10] MEDS: ACETAMINOPHEN/HYDROcodone 325 MG/7.5 MG TAB PO PRN ×4 (00:30→17:51)
[2017-10-10] MEDS: LACTATED RINGER'S 1000 ML INJ 1,000 ML IV SCH (00:38)
[2017-10-10 04:00] VITALS: BP 137/66; PULSE 87; RESP 18; TEMP 98.2; O2SAT 99
[2017-10-10 08:00] VITALS: BP 138/64; PULSE 86; RESP 17; TEMP 98.6; O2SAT 99
[2017-10-10] MEDS ORDERED: DOCUSATE SODIUM 100 MG CAP PO SCH (09:00)
[2017-10-10] MEDS ORDERED: MULTIVITAMINS/MINERALS THERAPEUTIC TAB PO SCH (09:00)
[2017-10-10 12:00] VITALS: BP 153/77; PULSE 88; RESP 17; TEMP 98.1; O2SAT 100
[2017-10-10] MEDS ORDERED: COMMODE 3-IN-11 MIS (13:25)
--- NOTE | 2017-10-10 13:28 | PD.ORT.PN ---
Subjective Subjective Remarks She has quite a bit of posterior neck pain, 'more than expected'. No new radiating arm pain. No difficulty breathing or swallowing. She is concerned about being able to walk to the bathroom when she gets to her house. No other concerns. Objective Vitals Vital Signs Date Time Temp Pulse Resp B/P (MAP) Pulse Ox O2 Delivery O2 Flow Rate FiO2 10/10/17 12:00 98.1 88 17 153/77 (102) 100 10/10/17 08:00 98.6 86 17 138/64 (88) 99 10/10/17 04:00 98.2 87 18 137/66 (89) 99 10/10/17 00:00 98.4 92 20 144/72 (96) 100 10/09/17 20:00 98.4 85 18 130/73 (92) 99 10/09/17 18:00 76 15 126/67 (86) 100 Room Air 10/09/17 17:00 74 12 108/64 (79) 99 Nasal Cannula 2 10/09/17 16:00 73 14 122/72 (89) 100 Nasal Cannula 2 10/09/17 15:00 69 18 135/80 (98) 100 Nasal Cannula 2 10/09/17 14:45 71 16 131/78 (95) 100 Nasal Cannula 2 10/09/17 14:30 69 17 140/78 (98) 100 Nasal Cannula 2 10/09/17 14:15 71 14 130/73 (92) 100 Nasal Cannula 2 10/09/17 14:00 97.9 76 17 130/72 (91) 100 Nasal Cannula 2 I/O 10/09/17 10/09/17 10/09/17 10/10/17 10/10/17 10/10/17 07:00 15:00 23:00 07:00 15:00 23:00 Intake Total 2100 ml 1820 ml Output Total 50 ml Balance 2050 ml 1820 ml Intake Oral 320 ml IV Total 1500 ml Other 2100 ml Output Estimated Blood Loss 50 ml # Voids 3 # Bowel Movements 0 Procedures Posterior cervical fusion C34, C45, C56, DTRAX facet instrumentation, bone graft. Objective Remarks Sitting up in bed NAD With family member C/S Brace intact, Posterior dressing recently changed c/d/i, mild swelling and spasm +motor biceps, brachiorad, +sens, +nvi Assessment & Plan Ortho Post Op Day #: 1 Problem List: (1) Degenerative disc disease, cervical ICD Codes: M50.30 - Other cervical disc degeneration, unspecified cervical region (2) Cervical spinal stenosis ICD Codes: M48.02 - Spinal stenosis, cervical region Assessment and Plan pod#1 s/p PSF C3-C6 Ortho stable. Moderate to substantial posterior neck pain. Ice highly encouraged. Ok to d/c home later today. No HHC needed. Dry dressing changes daily. No need for incision care as incision are glued/ sealed. Cervical brace manager sas for 6 weeks. PO pain meds as needed. Soft diet for 48 hours. F/U in 2 weeks as scheduled. Patito Encarnacion October 10, 2017 13:28
[2017-10-10 16:00] VITALS: BP 123/61; PULSE 88; RESP 17; TEMP 98.4; O2SAT 95
== END 2017-10-10 19:54 | disposition home or self-care (01) | DRG 455 ==
LOC: EDUNIT# 10:45 → HSDI 10-09 08:10 → N06B 10-09 18:35
PROVIDERS: ADMIT Orthopaedic Surgery Orthopaedic Surgery of the Spine; ATTEND Orthopaedic Surgery Orthopaedic Surgery of the Spine
PROC: 0RG2071 Fusion of 2 or more Cervical Vertebral Joints with Autologous Tissue Substitute, Posterior Approach, Posterior Column, Open Approach (ICD-10-PCS; 2017-10-09)
PROC: 0QB30ZZ Excision of Left Pelvic Bone, Open Approach (ICD-10-PCS; 2017-10-09)
PROC: 0RG20AJ Fusion of 2 or more Cervical Vertebral Joints with Interbody Fusion Device, Posterior Approach, Anterior Column, Open Approach (ICD-10-PCS; principal; 2017-10-09 11:38)
DX: M48.02 Spinal stenosis, cervical region (principal); M50.11 Cervical disc disorder with radiculopathy, high cervical region
CPT/HCPCS: 72040; 76000; 94150; C1713; J0131; J0690; J1100; J1170; J1580; J1885; J2250; J2270; J2405; J2710; J3370; J7120; L0150